=== PATIENT | female | born 1985 | race Two or more races ===

== ENCOUNTER 2017-01-20 04:33 | Emergency (ER) | payer OTHER ==
[~2017-01-20] VITALS: Ht 154.9 cm; Wt 81.6 kg
[~2017-01-20 04:33] MED LIST: DOXE50CA PO; FLUO20CA16 PO; FLUO40CA9 PO; NAPR500T8 PO; OXYC-323 PO; PNV1TABL25 PO
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
[2017-01-20] MEDS ORDERED: IV NORMAL SALINE 1000ML BAG 1,000 ML IV ONE (05:00)
[2017-01-20 05:43] LABS: BASO % 1 % (0-3); EOS % 1 % (0-3); HEMATOCRIT 40.9 % (36.0-47.0); LYMPH # 2.1 x10^3/uL (1.0-4.8); LYMPH % 20 % (24-48); MEAN CORPUSCULAR HEMOGLOBIN 30 pg (25-35); MEAN CORPUSCULAR HGB CONC 34 g/dL (31-37); MEAN CORPUSCULAR VOLUME 86 fL (79-100); MONO % 4 % (0-9); NEUT % 75 % (31-73); PLATELET COUNT 307 x10^3/uL (140-400); RED BLOOD COUNT 4.75 x10^6/uL (3.50-5.40); RED CELL DISTRIBUTION WIDTH 13.5 % (11.5-14.5); WHITE BLOOD COUNT 10.3 x10^3/uL (4.0-11.0)
[2017-01-20 05:49] LABS: ANION GAP 12 (6-14); BLOOD UREA NITROGEN 10 mg/dL (7-20); CALCIUM 8.8 mg/dL (8.5-10.1); CARBON DIOXIDE 25 mmol/L (21-32); CHLORIDE 108 mmol/L (98-107); CREATININE 0.6 mg/dL (0.6-1.0); GFR 118.2; GLUCOSE 138 mg/dL (70-99); POTASSIUM 4.2 mmol/L (3.5-5.1); SODIUM 145 mmol/L (136-145)
[2017-01-20 05:54] LABS: ALBUMIN 4.2 g/dL (3.4-5.0); ALK PHOS 70 U/L (46-116); ALT (SGPT) 50 U/L (14-59); AST (SGOT) 53 U/L (15-37); DIRECT BILIRUBIN < 0.1 mg/dL (0.0-0.2); TOTAL BILIRUBIN 0.2 mg/dL (0.2-1.0); TOTAL PROTEIN 7.9 g/dL (6.4-8.2)
--- NOTE | 2017-01-20 06:17 | EKG ---
[facility] [address] [place] [address] Test Date: 2017-01-20 Test Time: 05:57:11 Pat Name: DAYNA GONZALES Department: Room: Gender: F Dispatch Clerk: DMITRI : [id number] Requested By: EMILIE MOJICA Order Number: [id number] Reading MD: Denise Rothman Measurements Intervals [place] Rate: 105 P: 146 MN: 186 QRS: 127 QRSD: 82 T: 171 QT: 330 QTc: 440 Interpretive Statements SINUS TACHYCARDIA ABNORMAL RIGHT AXIS DEVIATION OTHERWISE NORMAL EKG Electronically Signed On 01-24-2017 10:57:19 CDT by Denise Rothman
[2017-01-20 06:21] LABS: BILIRUBIN,URINE NEGATIVE (NEG); GLUCOSE,URINE NEGATIVE (NEG); PH,URINE 5.5; PROTEIN,URINE 100 mg/dL (NEG-TRACE); UROBILINOGEN,URINE 0.2 mg/dL (0.2 mg/dL)
[2017-01-20 06:22] LABS: BACTERIA,URINE 0 /HPF (0-FEW); NITRITE,URINE NEGATIVE (NEG); RBC,URINE 0 /HPF (0-2); SQUAMOUS EPITHELIAL CELL,UR FEW /LPF
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
[2017-01-20 07:54] VITALS: BP 129/73
== END 2017-01-20 08:10 | disposition home or self-care (01) ==
LOC: ER 04:33 → EEVIPCON 04:33 → ER 08:10
DX: S09.93XA Unspecified injury of face, initial encounter (principal); S69.91XA Unspecified injury of right wrist, hand and finger(s), initial encounter; Y04.0XXA Assault by unarmed brawl or fight, initial encounter; Y93.89 Activity, other specified; Y99.8 Other external cause status; Y92.89 Other specified places as the place of occurrence of the external cause
CPT/HCPCS: 36415; 70450; 70486; 72125; 80048; 80076; 81001; 81025; 83690; 84484; 85025; 93005; 96360; 99285; J7030

== ENCOUNTER → 2020-05-27 | Outpatient (CLI) | payer OTHER ==
[~2020-05-27] MED LIST changes: -OXYC-323 PO; +OXYC1TAB15 PO
--- NOTE | 2020-05-27 15:20 | RAD ---
EXAM: OB ULTRASOUND, > 14 WEEKS HISTORY: Size and dates assessment. COMPARISON: None. TECHNIQUE: Multiple grayscale images, color Doppler, and M-mode images of the uterus are obtained. FINDINGS: There is a single intrauterine gestation in cephalic presentation. The placenta is anterior in locati on without evidence of placenta previa. The amount of amniotic fluid appears appropriate. Amniotic f luid index is normal Cervical length is 3.6 cm. Biometrical data: BPD = 6.0 cm for 24 weeks 3 days. HC = 22.77 cm for 24 weeks 6 days. AC = 19.29 cm for 24 weeks 0 days. FL = 4.45 cm for 24 weeks 5 days. HC/AC ratio = 1.18. Overall, the estimated sonographic gestational age is 24 weeks and 4 days for an estimated date of de livery of 09/12/2020. The estimated date of delivery provided by the last menstrual period is 24 weeks and 3 days. Estimated weight is 687 grams. This corresponds with the 42nd percentile. A 4 chamber heart is identified with positive cardiac activity. The estimated heart rate is 136 beats per minute. Bilateral upper and lower extremities are identified. There is a three-vessel cord with cord insertion visualized. stomach and urinary bladder are identified. Both kidneys are seen. The spine and brain are unremarkable. No obvious anatomic abnormalities are identified. The maternal ovaries are not identified in the adnexa due to overlying bowel gas. IMPRESSION: Single live intrauterine gestation with normal heart rate and gestational age based on ultrasound steffen surements of 24 weeks and 4 days. The estimated weight is at the 42nd percentile for a gestatio nal age of 24 weeks and 3 days based on LMP. Electronically signed by: Luz Hernandez MD (05/27/2020 3:17 PM) [id number]
== END ==
LOC: US 15:22
PROVIDERS: ATTEND Obstetrics & Gynecology
DX: O26.842 Uterine size-date discrepancy, second trimester (principal); Z3A.24 24 weeks gestation of pregnancy
CPT/HCPCS: 76805

== ENCOUNTER 2020-08-29 21:28 | Observation (INO) | payer OTHER ==
[2020-08-29 22:45] LABS: AMNIO PT NEGATIVE
[2020-08-29] MEDS ORDERED: IV RINGERS,LACTATED 1000ML 1,000 ML IV SCH (22:45)
[2020-08-29] MEDS ORDERED: ACETAMINOPHEN 325 MG TABLET. PO PRN (22:45)
[2020-08-29 22:50] LABS: BILIRUBIN,URINE NEGATIVE (NEG); CLARITY,URINE CLEAR; COLOR,URINE YELLOW; NITRITE,URINE NEGATIVE (NEG); PROTEIN,URINE NEGATIVE (NEG-TRACE)
[2020-08-29 22:56] LABS: AMORPHOUS SEDIMENT,UR PRESENT /HPF; BACTERIA,URINE 0 /HPF (0-FEW); RBC,URINE 0 /HPF (0-2)
== END 2020-08-29 23:25 | disposition home or self-care (01) ==
LOC: 3 SO LND 21:28
PROVIDERS: ADMIT Obstetrics & Gynecology; ATTEND Obstetrics & Gynecology
DX: O42.92 Full-term premature rupture of membranes, unspecified as to length of time between rupture and onset of labor (principal); O62.9 Abnormality of forces of labor, unspecified; Z3A.37 37 weeks gestation of pregnancy
CPT/HCPCS: 36415; 59025; 81001; 84112; G0378; G0379

== ENCOUNTER 2021-01-26 05:46 | Emergency (ER) | payer OTHER ==
[~2021-01-26] VITALS: Ht 162.6 cm; Wt 100.0 kg
[2021-01-26 05:47] VITALS: BP 150/85
[2021-01-26] MEDS ORDERED: LIDOCAINE 2%/EPI 1:100,000 20 ML VIAL. INJ ONE (07:00)
[2021-01-26] MEDS ORDERED: AMOX1TAB61 PO ×2 (07:11→07:30)
[2021-01-26] MEDS ORDERED: CHLO15MO2 PO ×2 (07:11→07:30)
[2021-01-26] MEDS ORDERED: HYDR-2761 PO ×2 (07:11→07:30)
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
== END 2021-01-26 07:40 | disposition home or self-care (01) ==
LOC: ER 05:46
DX: K08.89 Other specified disorders of teeth and supporting structures (principal); K02.9 Dental caries, unspecified
CPT/HCPCS: 99283

== ENCOUNTER 2021-07-17 05:23 | Emergency (ER) | payer OTHER ==
[~2021-07-17] VITALS: Ht 162.6 cm; Wt 94.9 kg
[~2021-07-17 05:23] MED LIST changes: +AMOX1TAB61 PO; +CHLO15MO2 PO; +HYDR-2761 PO
[2021-07-17] MEDS ORDERED: predniSONE 10 MG TABLET PO ONE (05:45)
[2021-07-17] MEDS ORDERED: ORPHENADRINE CITRATE 60 MG/2 ML VIAL. IM ONE (05:45)
[2021-07-17] MEDS ORDERED: PRED50TA PO (05:49)
[2021-07-17] MEDS ORDERED: METH-561 PO (05:49)
--- NOTE | 2021-07-17 05:49 | ED.ADGEN ---
Past Medical History Past Medical History: No Pertinent History Past Surgical History: No Surgical History Smoking Status: Never Smoker Alcohol Use: None Drug Use: None General Adult EDM: Chief Complaint: BACK PAIN OR INJURY HPI: HPI: Patient is a 36-year-old female who presents to the emergency room complaining of left-sided back pain that radiates into her buttock and down her leg. She states that this is been ongoing intermittently for the last 3 or 4 years but is gotten worse over the last couple of weeks. She states that she does do a lot of bending but does not do a lot of lifting at work. She denies any associated symptoms. She tried to take ibuprofen at home without any relief. Review of Systems: Review of Systems: Complete ROS is negative unless otherwise documented in HPI Allergies: Allergies: Allergies Coded Allergies Type Severity Reaction Last Updated Verified No Known Drug Allergies 07/17/21 No Physical Exam: PE: General: Awake, alert, NAD. Well Nourished, well hydrated. Cooperative HEENT: Atraumatic, EOMI, PERRL, airway patent, moist oral mucosa Neck: Supple, trachea midline Respiratory: CTA bilaterally, normal effort, no wheezing/crackles CV: RRR, no murmur, cap refill <2 GI: Soft, nondistended, nontender, no masses MSK: No obvious deformities, left-sided lumbar tenderness, no step-offs, no deformities Skin: Warm, dry, intact Neuro: A&O x3, speech NL, sensory and motor grossly intact, no focal deficits Psych: Normal affect, normal mood, not suicidal or homicidal Current Patient Data: Vital Signs: Vital Signs Date Time Temp Pulse Resp B/P (MAP) Pulse Ox O2 Delivery O2 Flow Rate FiO2 07/17/21 05:30 98.9 96 18 136/81 (99) 99 Room Air 98.9 EKG: EKG: [] Heart Score: C/O Chest Pain: N/A Risk Factors: Risk Factors: DM, Current or recent (<one month) smoker, HTN, HLP, family history of CAD, obesity. Risk Scores: Score 0 - 3: 2.5% MACE over next 6 weeks - Discharge Home Score 4 - 6: 20.3% MACE over next 6 weeks - Admit for Clinical Observation Score 7 - 10: 72.7% MACE over next 6 weeks - Early Invasive Strategies Radiology/Procedures: Radiology/Procedures: [] Course & Med Decision Making: Course & Med Decision Making Pertinent Labs and Imaging studies reviewed. (See chart for details) Patient is a 36-year-old female who presents to the Emergency room with non- traumatic back pain. Patient denies bowel incontinence, urinary retention, fever, numbness, weakness. On exam, patient does not have a neurologic deficits, saddle anesthesia, gait difficulty, signs of trauma, or wounds near area of pain. Patient does not have a history of cancer or prolonged steroid use. At this time, patient does not have any signs, symptoms, or risk factors of emergent causes of back pain making cauda equina, spinal abscess, transverse myelitis, fractures, and other causes of emergent back pain highly unlikely. At this time, patient does not need any further work up for their back pain and will be treated symptomatically. Patient's test results and vitals while in the ED were fully reviewed and discussed with the patient. Patient is stable and at this time does not need admission to the hospital. We have discussed strict return precautions and the importance of following up with their Primary Care Physician. Patient stated understanding and was given an opportunity to ask any questions. Patient is in agreement with plan. Marisol Disclaimer: Marisol Disclaimer: This electronic medical record was generated, in whole or in part, using a voice recognition dictation system. Departure Departure Impression: Primary Impression: Back pain Disposition: HOME / SELF CARE / HOMELESS Condition: STABLE Referrals: NO PCP (PCP) Patient Instructions: Back Pain, Adult Scripts Prednisone (PREDNISONE) 50 Mg Tablet 1 TAB PO DAILY, #5 TAB Start tomorrow Prov: SANTINO MORALES MD 07/17/21 Methocarbamol (METHOCARBAMOL) 500 Mg Tablet 500 MG PO QID PRN for MUSCLE PAIN for 5 Days, #20 TAB Prov: SANTINO MORALES MD 07/17/21 SANTINO MORALES MD Jul 17, 2021 05:49
[2021-07-17 06:20] VITALS: BP 130/65
== END 2021-07-17 06:20 | disposition home or self-care (01) ==
LOC: ER 05:23
DX: M54.50 Low back pain, unspecified (principal)
CPT/HCPCS: 96372; 99283; J2360; J7512